=== PATIENT | male | born 1995 | race African-American/Black ===

== ENCOUNTER 2017-03-20 22:40 | Emergency (ER) | payer MEDICAID ==
[~2017-03-20] VITALS: Ht 175.3 cm; Wt 64.0 kg
[2017-03-21] MEDS ORDERED: GENTAMICIN SULFATE 240 MG in SODIUM CHLORIDE 0.9% 100 ML IV STA (03:51)
[2017-03-21] MEDS ORDERED: AZITHROMYCIN 500 MG TABLET PO ONE (04:00)
[2017-03-21] MEDS ORDERED: VALACYCLOVIR HCL 500MG TABLET PO ONE (04:00)
[2017-03-21 04:20] VITALS: BP 118/80
[2017-03-21] MEDS ORDERED: GENTAMICIN SULFATE 240 MG in SODIUM CHLORIDE 0.9% 100 ML IV SCH (04:30)
[2017-03-21 05:08] LABS: CLARITY URINE CLEAR (CLEAR); COLOR URINE YELLOW (YELLOW); KETONES URINE NEGATIVE (NEGATIVE); LEUKOCYTE ESTERASE URINE 2+ (NEGATIVE); NITRITE URINE NEGATIVE (NEGATIVE); OCCULT BLOOD URINE NEGATIVE (NEGATIVE); PH URINE 6.5 (4.5-8.0); PROTEIN URINE NEGATIVE (NEGATIVE); SPECIFIC GRAVITY URINE 1.024 (1.005-1.030)
== END 2017-03-21 05:00 | disposition home or self-care (01) ==
LOC: ER 22:40
DX: Z20.2 Contact with and (suspected) exposure to infections with a predominantly sexual mode of transmission (principal); B00.9 Herpesviral infection, unspecified; F17.210 Nicotine dependence, cigarettes, uncomplicated; F12.90 Cannabis use, unspecified, uncomplicated; Z88.0 Allergy status to penicillin; Z91.018 Allergy to other foods; Z91.09 Other allergy status, other than to drugs and biological substances
CPT/HCPCS: 81001; 96365; 99284; J1580; Z7610; J7050

== ENCOUNTER 2017-08-15 12:09 | Emergency (ER) | payer MEDICAID ==
[~2017-08-15] VITALS: Ht 162.6 cm; Wt 65.0 kg
[2017-08-15] MEDS ORDERED: TETANUS, DIPHTHERIA, PERTUSSIS VAC/PF 0.5ML (>7YR OLD) IM ONE (12:30)
[2017-08-15] MEDS ORDERED: LIDOCAINE HCL 1% 20ML VIAL (Pyxis) INJ MC ONE (12:30)
[2017-08-15] MEDS ORDERED: BACITRACIN ZINC OINT UDPKT TOP ONE (12:30)
[2017-08-15] MEDS ORDERED: LIDOCAINE HCL/PF 1% 10 MG/ML 5ML VIAL IJ ONE (13:15)
[2017-08-15 14:43] VITALS: BP 114/84
== END 2017-08-15 14:56 | disposition home or self-care (01) ==
LOC: ER 13:00
DX: S61.411A Laceration without foreign body of right hand, initial encounter (principal); Z23 Encounter for immunization; Z88.0 Allergy status to penicillin; W25.XXXA Contact with sharp glass, initial encounter; Y93.9 Activity, unspecified
CPT/HCPCS: 12001; 73130; 90471; 90715; 99284; J3490; X7700

== ENCOUNTER 2017-08-16 09:01 | Emergency (ER) | payer MEDICAID ==
[~2017-08-16] VITALS: Ht 170.2 cm; Wt 64.0 kg
[2017-08-16 09:36] VITALS: BP 116/69
== END 2017-08-16 11:13 | disposition home or self-care (01) ==
LOC: ER 10:26
DX: M79.5 Residual foreign body in soft tissue (principal); F12.10 Cannabis abuse, uncomplicated; Z88.0 Allergy status to penicillin
CPT/HCPCS: 99282

== ENCOUNTER 2022-11-18 10:12 | Emergency (ER) | payer MEDICAID ==
[~2022-11-18] VITALS: Ht 175.3 cm; Wt 69.0 kg
[2022-11-18 10:27] VITALS: TEMP 98.5; O2SAT 99
[2022-11-18 11:15] VITALS: BP 117/79; PULSE 105; RESP 18
[2022-11-18] MEDS ORDERED: MAGNESIUM/ALUMINUM HYDROXIDE/SIMETHICONE 30ML UDC PO ONE (11:15)
[2022-11-18] MEDS ORDERED: KETOROLAC 30MG/ML VIAL IM ONE (11:15)
[2022-11-18 11:19] LABS: HEMATOCRIT. 41.9 % (42.0-52.0); HEMOGLOBIN. 14.1 g/dL (14.0-18.0); MEAN CORPUSCULAR HEMOGLOBIN 27.6 pg (28.0-32.0); MEAN CORPUSCULAR HGB CONC 33.6 g/dL (31.0-37.0); MEAN CORPUSCULAR VOLUME 82.2 fL (80.0-94.0); MEAN PLATELET VOLUME 7.1 fl (7.4-10.4); PLATELET 226 x1000/uL (130-400); RED CELL DISTRIBUTION WIDTH 15.6 % (11.6-14.6); WHITE BLOOD COUNT 8.3 x1000/uL (4.5-11.0)
[2022-11-18 11:24] LABS: DIFFERENTIAL COMMENT 1
[2022-11-18 12:20] LABS: CLARITY URINE CLEAR (CLEAR); COLOR URINE YELLOW (YELLOW); GLUCOSE URINE NEGATIVE (NEGATIVE); KETONES URINE NEGATIVE (NEGATIVE); LEUKOCYTE ESTERASE URINE NEGATIVE (NEGATIVE); NITRITE URINE NEGATIVE (NEGATIVE); OCCULT BLOOD URINE NEGATIVE (NEGATIVE); PH URINE 8.5 (4.5-8.0); PROTEIN URINE NEGATIVE (NEGATIVE); SPECIFIC GRAVITY URINE 1.021 (1.005-1.030)
[2022-11-18 12:32] LABS: ALBUMIN 4.5 g/dL (3.4-5.0); CALCIUM 8.6 mg/dL (8.5-10.1); CHLORIDE 103 mEq/L (98-107); INDEX HEMOLYSI 1 (1-3); INDEX ICTERIC 1 (1-4); INDEX LIPEMIC 1 (1-3); POTASSIUM 4.1 mEq/L (3.5-5.1); SODIUM 136 mEq/L (136-145); UREA NITROGEN BLOOD 12 mg/dL (7-21)
[2022-11-18 12:38] LABS: ALANINE AMINOTRANSFERASE 24 IU/L (13-61); ASPARTATE AMINOTRANSFERASE 20 IU/L (15-37); BILIRUBIN TOTAL 0.9 mg/dL (0.1-1.0); CARBON DIOXIDE 26 mEq/L (21-32); GLUCOSE 91 mg/dL (70-105); PROTEIN TOTAL 8.1 g/dL (6.0-8.3)
[2022-11-18] MEDS ORDERED: TOPUD MT (13:03)
[2022-11-18] MEDS ORDERED: MAG355OR21 MT (13:03)
[2022-11-18 13:49] LABS: PLATELET ESTIMATE NORMAL
== END 2022-11-18 13:27 | disposition home or self-care (01) ==
LOC: ER 10:12
DX: U07.1 COVID-19 (principal); F12.10 Cannabis abuse, uncomplicated; Z79.899 Other long term (current) drug therapy; Z88.0 Allergy status to penicillin
CPT/HCPCS: 80053; 81003; 83690; 85025; 36415; 96372; 99283; 87426; J1885; C9803; Z7610